=== PATIENT | female | born 1985 | race Asian ===

== ENCOUNTER 2017-05-05 05:52 | Inpatient (IN) | payer SELFPAY ==
[~2017-05-05] VITALS: Ht 162 cm; Wt 61.0 kg
--- NOTE | 2017-05-05 10:45 | Operative Report ---
Operative/Inv Procedure Report Surgery Date: 05/05/17 Name of Procedure: Repeat low transverse section via Pfannenstiel Pre-Operative Diagnosis: 40 wks IUP, previous section Post-Operative Diagnosis: Same Estimated Blood Loss: 600ml Surgeon/Mangle Operator Garments: FELECIA PICKETT,ROSENDO Norton MD Anesthesia: spinal IV Fluids: Lactated Ringer's Urine Output: 100 mL clear urine at the end of procedure Specimens: Skin scar Complications: None Condition: Stable Operative Indication: G2 para 1001 at 40 weeks intrauterine , previous section, for elective repeat Operative/Procedure Note Note: The patient was taken to the operating room where spinal anesthesia was found to be adequate. She was then prepared and draped in the normal sterile fashion in the dorsal supine position with a leftward tilt. A Pfannenstiel skin incision was then made with the scalpel, the old scar was removed with scalpel. The incision was then carried through to the underlying layer of the fascia with the Bovie. The fascia was incised in the midline and the incision extended laterally with the Bovie. The inferior aspect of this fascial incision was then grasped with the Roro clamps, elevated, and the underlying rectus muscle dissected off with Tomlinson scissors. Attention was then turned to the superior aspect of this incision which, in a similar fashion, was grasped, tented up with Roro clamps, and the rectus muscle dissected off with Tomlinson scissors. The rectus muscle were then in the midline, and the peritoneum identified, tented up, and entered bluntly. The peritoneal incision was then extended superiorly and inferiorly with good visualization of the bladder. The bladder blade was then inserted and the vesicouterine peritoneum identified, grasped with the pickups and entered sharply with the Metzenbaum scissors. The incision was then extended laterally and the bladder flap created digitally. The bladder blade was then reinserted and the lower uterine segment incised in a transverse fashion with the scalpel. The uterine incision was then extended laterally, the bladder blade was removed and the head delivered atraumatically. The nose and mouth was suctioned with the suction bulb, and the cord clamped and cut. The was handed off to the waiting pediatricians. Cord blood were sent. The placenta was then removed manually, the uterus exteriorized, and cleared of all clots and debris. The uterine incision was then repaired with 0 Vicryl in a running locked fashion. Second layer of the same suture was used to achieve excellent hemostasis. And the right side corner of the uterine incision small amount bleeding still encountered, the O[place]ks stitch was placed excellent hemostasis assured. The uterus then returned to the abdomen, the gutters were cleared of all clots, and the peritoneum closed with 2-0 Vicryl. The rectus muscle were were reapproximated with 2-0 Vicry. The fascia was reapproximated with 0 Vicryl in a running fashion. The skin was closed with 4-0 Monocryl subcuticularly. The patient tolerated the procedure well. Sponge, lap and needle counts were correct 2. The patient was taken to the recovery room in stable condition. Findings: Female infant in cephalic presentation, GIULIANA position, clear fluid noted upon entry the amniotic sac. Pediatrics present at the delivery. Weight 3550 g, Apgars 9 and 9. Normal uterus, tubes, and ovaries.
--- NOTE | 2017-05-05 10:47 | History & Physical ---
General Information and HPI MD Statement: I have seen and personally examined KRISTI COOPER and documented this H&P. The patient is a 32 year old female at [40] weeks and [] days gestation who presented with a chief complaint of [elective repeat c/s ]. Source of Information: patient Exam Limitations: no limitations History of Present Illness: 31yo, , 40 wks IUP, here for elective repeat . she has no complaints. denies VB or LOF, reports GFM. care started in [place], transfer care to practice at 28wks. uncomplicated thus far. Prior c/s x 1 due to distress in [place]. 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 : 2 Para: 1 Last Menstrual Period: 07/29/2017 Estimated Delivery Date: 05/05/2017 Past warehouse worker 2nd shift History: Past Pregnancies Past Pregnancies: Date of Delivery: 04/2013 Gestational Age: 39+wks Type of Delivery: Place of Delivery: [place] Complications: none Medical History Blood Transfusion Hx: No Neurological: NONE EENT: NONE Cardiovascular: NONE Respiratory: NONE Gastrointestinal: NONE Hepatic: NONE Renal: NONE Musculoskeletal: NONE Psychiatric: NONE Endocrine: NONE Blood Disorders: NONE Cancer(s): NONE MAINTENANCE DISPATCHER/Reproductive: NONE Surgical History Pertinent Surgical History: Past Family/Social History Psychosocial History Where do you live? Home Who Do You Live With? spouse, child Primary Language: [facility] Smoking Status: Never Smoked ETOH Use: denies use Illicit Drug Use: denies illicit drug use Review of Systems Review of Systems Constitutional: Reports: no symptoms. EENTM: Reports: no symptoms. Cardiovascular: Reports: no symptoms. Respiratory: Reports: no symptoms. GI: Reports: no symptoms. Genitourinary: Reports: see HPI. Musculoskeletal: Reports: no symptoms. Skin: Reports: no symptoms. Neurological/Psychological: Reports: no symptoms. Hematologic/Endocrine: Reports: no symptoms. Immunologic/Allergic: Reports: no symptoms. All Other Systems: Reviewed and Negative Date of LMP: 07/29/16 Post Menopausal: No Exam & Diagnostic Data Last 24 Hrs of Vital Signs/I&O Intake & Output 05/05 1600 05/05 0800 05/05 0000 Intake Total Output Total Balance Patient 61 kg Weight Obstetric Exam Wgt Gained During : adequate Pelvimetry: adequate Dilation (cm): 0 Effacement (%): 0 Station: -3 Membranes: intact Fluid: unknown Fundal Height (cm): 39 Multiple Gestation? No Contractions: occasional #1 - FHR Baseline: 130 Category: 1 Estimated Weight: 3500g Presentation: vertex Patient for Induction? No Physical Exam: VSS general: NAD Abdomen: gravid, soft, nontender ext: DCT (-) Labs Blood Type & Rh: A positive Antibody Screen: negative Hct/Hgb & Platelets #1: 12.2, PLT [id number] Hct/Hgb & Platelets #2: 10.3/31.4%,[id number] Rubella: immune VDRL #1: negative VDRL #2: negative HbsAg: negative HIV #1: negative HIV #2 negative 1 Hr PG: normal( done in [place]) Group B Strep: negative Initial Ultrasound: IUP at 6 wks 4 days Anatomy Ultrasound: normal Genetic Testing: normal Last 24 Hrs of Labs/Cristopher: Microbiology 05/05 0900 URINE ROUT: Urine Culture - COLB 05/05 0755 URINE ROUT: Urine Culture - RECD Assessment/Plan Assessment/Plan: 32yo, at 40 wks, prior , here for elective repeat 1. Admit patient, routine admission labs. 2. Risks benefits and alternatives of repeat discussed with the patient in detail, patient understand, all questions answered, informed consent obtained. Patient desires to proceed. 3. Prepare for OR. As Ranked By This Provider Problem List: 1. History of 2. Core Measures/Miscellaneous Venous Thromboembolism VTE Risk Factors: / VTE Contraindications: No Contraindications VTE Diagnosis: No Beta Edenilson Is Beta Edenilson a Home Med? No Antibiotics Is Patient on Antibiotics? No Attending MD Review Statement Attending Statement Attending MD Statement: examined this patient, discussed with family, discussed w/nursing
[2017-05-06 11:11] LABS: ABSOLUTE BASOPHIL COUNT 0 /CUMM (0.0-0.2); ABSOLUTE EOSINOPHIL COUNT 0.1 /CUMM (0.0-0.7); ABSOLUTE MONOCYTE COUNT 0.7 /CUMM (0.10-0.60); BASOPHIL % 0.3 % (0.0-2.0); RED BLOOD CELL CT 2.95 /CUMM (4.20-5.40)
--- NOTE | 2017-05-06 11:21 | PN- OBGYN ---
Surgical Brief Attending Note Brief Attending Note: POD#1 pr is resting in bed, no complaints, tolerte diet, void without difficulties, flatus(+) PE: VSS CV RRR Lungs CTA B/L Abdomen: soft, nontender, uterus firm, fundus below umbilicus. incision D/C/I, lochia mild Ext: DCT (-) A/P: 32yo, s/p RLTCS, POD#1 1. encourage ambualtion and 2. RT PP care, pain management as needed
[2017-05-06 11:33] LABS: ABSOLUTE GRANULOCYTE CT 5.7 /CUMM (1.4-6.5); ABSOLUTE LYMPH COUNT 2.2 /CUMM (1.2-3.4); EOSINOPHIL % 0.7 % (0-5); GRANULOCYTE % 65.7 % (42.2-75.2); MEAN CORPUSCULAR HGB 33.2 PG (27.0-31.0); MEAN CORPUSCULAR HGB CONC 33.3 G/DL (33.0-37.0); MEAN CORPUSCULAR VOLUME 99.6 FL (81.0-99.0); MEAN PLATELET VOLUME 8.9 FL (7.4-10.4); PLATELET COUNT 167 /CUMM (130-400); RBC DISTRIBUTION WIDTH 13.9 % (11.5-14.5); WHITE BLOOD CELL COUNT 8.7 /CUMM (4.8-10.8)
[2017-05-06 11:38] LABS: HEMATOCRIT 29.4 % (37-47)
[2017-05-07] MEDS ORDERED: IBUPROFEN800 M1 PO (10:11)
[2017-05-07] MEDS ORDERED: PERCOCET 5-3251 EACH PO (10:11)
--- NOTE | 2017-05-07 10:11 | PN- OBGYN ---
Surgical Brief Attending Note Brief Attending Note: POD#2 pt is resting in bed, no complaints. tolerate diet, void without difficulties. flatus(+) PE: VSS CV RRR lungs CTA B/L Abdomen: soft, nontender, uterus firm, fundus below umbilicus, incision D/C/I, lochia mild Ext: DCT (-) A/P: 32 yo, s/p RLTCS, POD#2 1. encourage ambulation and 2.RT PP care
--- NOTE | 2017-05-08 10:32 | PN- OBGYN ---
Surgical Brief Attending Note Brief Attending Note: NO COMPLAINTS. DOING WELL. READY FOR DISCHARGE. +AMBULATING, VOIDING, TOLERATING PAIN AND PO. NL LOCHIA , +NURSING VSSAF FF@U-1 EXT: NO CALF TENDERNESS, 1+ PEDAL EDEMA INC: C/D/I, APPROPRIATELY TENDER Laboratory Tests 05/06/17 0825: CBC w Diff NO MAN DIFF REQ, RBC 2.95 L, MCV 99.6 H, MCH 33.2 H, RDW 13.9, MPV 8.9, Gran % 65.7, Lymphocytes % 25.3, Monocytes % 8.0, Eosinophils % 0.7, Basophils % 0.3, Absolute Granulocytes 5.7, Absolute Lymphocytes 2.2, Absolute Monocytes 0.7 H, Absolute Eosinophils 0.1, Absolute Basophils 0, PUBS MCHC 33.3 Microbiology Date/Time Procedure - Status Source Growth 05/05 0900 Urine Culture - CAN URINE ROUT Cancelled: DUPLICATE Orders Procedure Date/time Status Discharge Patient 05/08 UNK Active Regular Diet 05/06 B Active Clear Liquid Diet 05/05 L Complete A/P POD 3. DOING WELL. DISCHARGE TO DAY. PRECUATIONS ADVISED.
--- NOTE | 2017-05-09 18:57 | Discharge Summary ---
Visit Information Visit Dates Admission Date: 05/05/17 Discharge Date: 05/08/17 Hospital Course Course Attending Physician: ROSENDO IZQUIERDO MD Primary Care Physician: UNKNOWN Hospital Course: 32-year-old, 40 weeks intrauterine , prior section, she was admitted on 05/05/2017 for elective repeat section. Patient delivered a live male infant in cephalic presentation, she tolerated the procedure well, no complications. During the hospital stay, patient remained in stable condition, she tolerated diet, void without difficulties, passing flatus, vitals are within normal limits, abdomen soft, nontender, fundus below umbilicus, incision dry clean intact, normal lochia. She was discharged on 05/08/2017. Complications: None Allergies: Coded Allergies: Aminoglycosides (Severe, UNKNOWN 05/05/17) Significant Procedures: Repeat low transverse section via Pfannenstiel Disposition Summary Disposition Principal Diagnosis: 40 weeks intrauterine , prior section Additional Diagnosis: Anemia Discharge Disposition: home or self care Discharge Instructions General Discharge Information Code Status: Full Code Patient's Diet: Regular Patient's Activity: As tolerated Follow-Up Instructions/Appts: No heavy lifting and pelvic rest for 6 weeks Follow-up in office in 2 weeks and 6 weeks Medications at Discharge Discharge Medications: Start taking the following new medications: Ibuprofen (Ibuprofen) 800 MG TABLET 800 Milligram ORAL EVERY SIX HOURS NEEDED as needed for UTERINE CRAMPING Qty = 30 No Refills Comments: Last Taken:05/08/17 Time:905 Oxycodone HCl/Acetaminophen (Percocet 5-325 MG Tablet) 5 MG-325 MG TABLET 2 Tablet ORAL EVERY 4 HOURS NEEDED as needed for PAIN SCALE 7-10 (SEVERE) Qty = 30 No Refills Comments: Last Taken:05/08/17 Time:905 Copies To: ROSENDO IZQUIERDO MD Attending MD Review Statement Documenting Attending: ROSENDO IZQUIERDO MD
== END 2017-05-08 10:18 | DRG 766 ==
LOC: GNO 05:52
PROVIDERS: ADMIT Obstetrics & Gynecology
PROC: 10D00Z1 Extraction of Products of Conception, Low, Open Approach (ICD-10-PCS; principal; 2017-05-05)
DX: O34.211 Maternal care for low transverse scar from previous cesarean delivery (principal); N85.8 Other specified noninflammatory disorders of uterus; Z3A.40 40 weeks gestation of pregnancy; Z37.0 Single live birth
CPT/HCPCS: 36415; 87086; J0690; J1200; J1885; J7120